=== PATIENT | female | born 1995 | race African-American/Black ===

== ENCOUNTER 2022-04-10 12:23 | Emergency (ER) | payer MEDICAID ==
[~2022-04-10] VITALS: Ht 160 cm; Wt 71.5 kg
[2022-04-10 12:54] VITALS: BP 145/62
[2022-04-10] MEDS ORDERED: LIDOCAINE HCL/PF 1% 10 MG/ML 5ML VIAL INFIL ONE (16:30)
[2022-04-10] MEDS ORDERED: BACITRACIN ZINC OINT UDPKT TOP ONE (16:30)
[2022-04-10] MEDS ORDERED: T3 PO (16:54)
[2022-04-10] MEDS ORDERED: SULF1TAB48 MT (16:54)
[2022-04-10] MEDS ORDERED: IBUP-2029 MT (16:54)
== END 2022-04-10 17:35 | disposition home or self-care (01) ==
LOC: ER 12:23
DX: L02.31 Cutaneous abscess of buttock (principal); J45.909 Unspecified asthma, uncomplicated; Z98.890 Other specified postprocedural states; Z88.0 Allergy status to penicillin
CPT/HCPCS: 10060; 99283; J3490; Z7610

== ENCOUNTER 2024-05-04 03:49 | Emergency (ER) | payer MEDICAID, OTHER ==
[~2024-05-04] VITALS: Ht 160 cm; Wt 83.2 kg
[~2024-05-04 03:49] MED LIST: IBUP-2029 MT; SULF1TAB48 MT; T3 PO
[2024-05-04 03:56] VITALS: O2SAT 100
[2024-05-04 03:57] VITALS: BP 147/79; PULSE 52; RESP 12; TEMP 37; O2SAT 100
[2024-05-04 07:01] VITALS: TEMP 98.6
[2024-05-04] MEDS: ACETAMINOPHEN 325MG TABLET PO ONE (07:01)
[2024-05-04] MEDS ORDERED: IBUP-2028 MT (08:22)
== END 2024-05-04 09:48 | disposition left against medical advice (07) ==
LOC: ER 03:49
DX: M25.512 Pain in left shoulder (principal); J45.909 Unspecified asthma, uncomplicated; Z88.0 Allergy status to penicillin; Z79.899 Other long term (current) drug therapy
CPT/HCPCS: 71045; 99283